=== PATIENT | male | born 1990 | race Caucasian/White ===

== ENCOUNTER 2021-07-25 09:07 | Emergency (ER) | payer OTHER ==
[~2021-07-25] VITALS: Ht 180.3 cm; Wt 97.9 kg
[2021-07-25 09:08] VITALS: BP 137/93
== END 2021-07-25 12:02 | disposition home or self-care (01) ==
LOC: M ED 09:07
DX: S16.1XXA Strain of muscle, fascia and tendon at neck level, initial encounter (principal); V40.0XXA Car driver injured in collision with pedestrian or animal in nontraffic accident, initial encounter; Y92.410 Unspecified street and highway as the place of occurrence of the external cause; Y93.9 Activity, unspecified; Y99.9 Unspecified external cause status